=== PATIENT | female | born 1995 | race Caucasian/White ===

== ENCOUNTER → 2024-03-25 | Outpatient (CLI) | payer OTHER ==
--- NOTE | 2024-03-27 01:04 | MR ---
EXAMINATION TYPE: MR knee LT wo con DATE OF EXAM: 03/25/2024 COMPARISON: Outside left knee x-ray March 18, 2024 HISTORY: Left knee pain since 03-06-2024, Injured twisted knee and knee gave out, Some swelling TECHNIQUE: Multiplanar, multisequence images of the knee is performed without IV contrast. FINDINGS: MEDIAL MENISCUS: Anterior and posterior horns are intact without tear. LATERAL MENISCUS: Anterior and posterior horns are intact without tear. CRUCIATE LIGAMENTS: The posterior cruciate ligament is intact and unremarkable. Complete tear of the anterior cruciate ligament is noted. COLLATERAL LIGAMENTS: The lateral collateral ligament complex is intact and unremarkable. Medial alley ateral ligament has some increased signal proximal fibers. Surrounding fluid is seen. EXTENSOR MECHANISM: Visualized quadriceps and patellar tendons are intact. EFFUSION: Moderate to large size suprapatellar joint effusion. POPLITEAL CYST: No popliteal/mosqueda cyst. TRICOMPARTMENT SPACES: Tricompartment joint spaces are maintained. No significant spurring. CARTILAGE: Tricompartmental articular cartilage is preserved. BONE MARROW SIGNAL: Heterogeneous increased T2 signal involving the anterolateral aspect of the dista l lateral femoral condyle. More prominent heterogeneous increased T2 signal involving the posterior a spect of the lateral and medial tibial plateau. OTHER: No additional significant abnormality is appreciated. IMPRESSION: 1. Complete ACL tear. Associated osseous contusion injury posterior lateral aspect distal lateral fem oral condyle and posterior aspect lateral proximal tibia 2. Additional osseous contusion injury posterior aspect proximal medial tibia. 3. Partial tear or sprain injury of the MCL. 4. Moderate to large size suprapatellar joint effusion. [facility], Workstation: [address], 03/27/2024 1:01 AM
== END | disposition home or self-care (01) ==
LOC: RADMRIMAIN 21:45
PROVIDERS: ATTEND Orthopaedic Surgery
DX: S83.512A Sprain of anterior cruciate ligament of left knee, initial encounter (principal)

== ENCOUNTER → 2024-04-10 | Outpatient (CLI) | payer OTHER ==
[2024-04-10 15:03] LABS: Basophils # (A) 0.04 X 10*3/uL (0.00-0.10); Basophils % (A) 0.4 %; Eosinophils % (A) 1.8 %; HCT 44.6 % (37.2-46.3); HGB 14.8 g/dL (12.0-15.0); Lymphocytes # (A) 2.83 X 10*3/uL (0.90-5.00); Lymphocytes % (A) 25.2 %; MCH 30.3 pg (27.0-32.0); MCHC 33.2 g/dL (32.0-37.0); MCV 91.4 FL (80.0-97.0); Mean Platelet Volume 10.8 FL (9.5-12.2); Monocytes # (A) 0.87 X 10*3/uL (0.20-1.00); Monocytes % (A) 7.7 %; NRBC Per 100 WBC 0 X 10*3/uL (0.00-0.01); Neutrophils # (A) 7.28 X 10*3/uL (1.80-7.70); Neutrophils % (A) 64.6 %; Platelet Count 316 X 10*3/uL (140-440); RBC 4.88 X 10*6/uL (4.10-5.20); RDW 11.9 % (11.5-14.5); WBC 11.25 X 10*3/uL (4.50-10.00)
[2024-04-10 15:15] LABS: Anion Gap 12.6 mmol/L (4.00-12.00); Carbon Dioxide 24.4 mmol/L (21.6-31.8); Potassium 4.7 mmol/L (3.5-5.5)
== END | disposition home or self-care (01) ==
LOC: LABWHC1 11:02
PROVIDERS: ATTEND Orthopaedic Surgery
DX: S83.512A Sprain of anterior cruciate ligament of left knee, initial encounter (principal)
CPT/HCPCS: 36415; 80051; 85025

== ENCOUNTER 2024-04-30 05:35 | Day surgery (SDC) | payer OTHER ==
--- NOTE | 2024-04-29 21:27 | HP ---
HISTORY AND PHYSICAL DATE OF SURGERY: 04/30/2024. HISTORY OF PRESENT ILLNESS: Gila Bird is a 29-year-old patient seen with a left knee ACL tear and instability. We discussed options regarding treatment. She elected to proceed with left knee arthroscopy to include allograft ACL reconstruction. Consent regarding procedure was obtained. PAST MEDICAL HISTORY: Noncontributory. PAST SURGICAL HISTORY: Noncontributory. DAILY MEDICATIONS: None. ALLERGIES: None reported. SOCIAL HISTORY: The patient denies tobacco use. PHYSICAL EVALUATION OF THE LEFT KNEE: Range of motion is -2 to 110 degrees. There is a mild to moderate effusion. Tenderness along the medial joint line. +2 to 3 Jaswinder, no endpoint, positive pivot shift. Collateral ligaments are stable. Distal neurovascular exam is intact. IMAGING STUDIES: Radiographs of the left knee failed to reveal any osseous abnormality. MRI of left knee revealed ACL tear and MCL sprain as well as an effusion. IMPRESSION: Internal derangement of left knee with anterior cruciate ligament tear. PLAN: Left knee arthroscopy with allograft ACL reconstruction. MMODL / IJN: [id number] /
[2024-04-30] MEDS ORDERED: LIDOCAINE 1% (10MG/ML) FOR IV START INTRADERMA PRN (06:09)
[2024-04-30] MEDS ORDERED: HYDROmorphone 0.5 MG/0.5 ML SYRINGE IVP PRN (06:09)
[2024-04-30] MEDS ORDERED: fentaNYL (PF) 50 MCG/ML 2 ML AMP IVP PRN (06:09)
[2024-04-30] MEDS: IV FLUID CONTINUATION 1,000 ML IV ONE (06:34)
[2024-04-30] MEDS: LACTATED RINGERS 1,000 ML IV SCH (06:34)
[2024-04-30] MEDS: ONDANSETRON 4 MG/2 ML VIAL IVP ONE (06:40)
[2024-04-30] MEDS: DEXAMETHASONE SOD PHOSPHATE 4 MG/ML 1 ML VIAL IV ONE (06:41)
[2024-04-30] MEDS: MIDAZOLAM 2 MG/2 ML VIAL IV PRN (06:51)
[2024-04-30] MEDS ORDERED: fentaNYL (PF) 50 MCG/ML 2 ML AMP ONE (07:25)
[2024-04-30] MEDS ORDERED: MIDAZOLAM 2 MG/2 ML VIAL ONE (07:25)
[2024-04-30] MEDS ORDERED: PROPOFOL 10 MG/ML 20 ML VIAL IV ONE (07:25)
[2024-04-30] MEDS ORDERED: KETAMINE HCL IN 0.9 % NACL 50 MG/5 ML SYRINGE ONE (07:25)
[2024-04-30] MEDS ORDERED: ROPIVACAINE 5 MG/ML 30 ML VIAL ONE (07:25)
[2024-04-30] MEDS ORDERED: SUCCINYLCHOLINE CHLORIDE 200 MG/10 ML VIAL IV ONE (07:25)
[2024-04-30] MEDS ORDERED: HYDROmorphone (PF) 1 MG/ML ONE (07:25)
[2024-04-30] MEDS ORDERED: LIDOCAINE 1% INJ 10MG/ML (20 ML MDV) ONE (07:25)
[2024-04-30] MEDS ORDERED: ROCURONIUM 10 MG/ML (5 ML VIAL) IV ONE (07:25)
[2024-04-30] MEDS ORDERED: GLYCOPYRROLATE 0.2 MG/ML 2 ML VIAL ONE (07:25)
[2024-04-30] MEDS ORDERED: DEXAMETHASONE SOD PHOSPHATE 4 MG/ML 1 ML VIAL ONE (07:25)
[2024-04-30] MEDS ORDERED: NEOSTIGMINE 1 MG/ML 10 ML VIAL ONE (07:25)
[2024-04-30] MEDS: BUPIVACAINE (PF) 0.25% 30 ML VIAL SQ ONE ×2 (09:18→09:33)
--- NOTE | 2024-04-30 09:41 | P.OP ---
Date of Procedure: 04/30/24 Preoperative Diagnosis: Internal derangement left knee with ACL tear Postoperative Diagnosis: 1. ACL tear left knee 2. Medial meniscal tear left knee 3. Reactive synovitis medial, lateral and suprapatellar compartments left knee 4. 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 Arthroscopic allograft ACL reconstruction left knee 2. Arthroscopic partial medial meniscectomy left knee 3. Arthroscopic partial synovectomy medial, lateral and suprapatellar compartments left knee 4. Arthroscopic chondroplasty medial femoral condyle left knee Implants: 2Arthrex Endobutton's Anesthesia: GETA, local Surgeon: Bolivar Nowak Engraver Flatware #1: Lorne Menjivar Estimated Blood Loss (ml): 10 Pathology: none sent Condition: stable Disposition: PACU Indications for Procedure: 29-year-old patient seen with left knee instability consistent with ACL tear. We discussed options. She elected to proceed with arthroscopy to include allograft ACL reconstruction. Operative Findings: See description of procedure Description of Procedure: Patient was taken to the operative suite. Patient underwent a general anesthetic by the department of anesthesia. Patient was given preoperative antibiotics. The left lower extremity was placed in a well-padded arthroscopic leg sanchez. The left leg was prepped and draped in the normal sterile orthop edic fashion. A lateral parapatellar and suprapatellar incision was made. Trochars were inserted. Arthroscopy was initiated. Suprapatellar pouch revealed diffuse thick reactive synovitis. The patellofemoral joint appeared to articulate congruently. There was no chondromalacia present. The scope was guided into the medial gutter. No loose bodies or plica were identified. The scope was then guided into the medial compartment. A medial parapatellar incision was made. Trocar inserted followed by probe. There was a radial tear posterior horn medial meniscus. There was near grade I chondromalacia along the medial aspect medial femoral condyle with osteochondral flap tear present. Scope and probe were then guided into the intercondylar notch. There was a complete tear of the anterior crucial ligament. At this point we opened up our allograft. Melquiades MUÑOZ began preparing her allograft for implantation I guided the scope back into the medial compartment. I performed a partial medial meniscectomy getting down to stable meniscal tissue. I performed a chondroplasty of the medial femoral condyle getting down to stable osteochondral tissue. I performed a partial synovectomy decompressing the thick reactive synovitis. The residual meniscus was stable. There was good decompression of the synovitis. The residual osteochondral surface was stable. The scope and probe were then guided into lateral compartment. The lateral meniscus was probed and was found to be stable. There was some thick reactive synovitis anteriorly. There was no chondromalacia. I reduced a motorized shaver and performed a partial synovectomy. The shaver was now removed. There was good decompression of the synovitis. I now guided the scope back into the intercondylar notch area. I now debrided out the residual torn ACL. I noted a very tight notch and performed a notchplasty. At this point the graft was prepared for implant. I now introduced our guide for the femoral tunnel. Melquiades MUÑOZ hold the guide in position while I created the femoral tunnel. We now passed a shuttle suture through that. I now introduced my tibial all inside tunnel guide. I held in position and Melquiades MUÑOZ passed the guidewire into the joint. We now created a all inside tibial tunnel. We now passed a show suture through that tunnel. The graft was now brought to the operative field. We shuttled the femoral graft into the tunnel making sure we flip the Endobutton and it was secured. We now passed our tibial side of the graft through the tibial tunnel and noted good positioning of our graft. The scope was now removed from the joint. I took the knee into full extension. I made an incision and dissected down to the proximal tibia. We now placed an Endobutton through our tibial sided sutures and I secured the tibial side the graft with the Arthrex Endobutton. The residual suture limbs were clipped. I did pass a internal brace and drilled a hole through the proximal tibia, passing internal brace suture three 4.75 Arthrex swivel lock anchor. I placed the anchor into the predrilled hole and then I introduced the anchor with good fixation noted. The residual suture limbs were clipped. We now guided the scope back into the joint. I guided the scope into intercondylar notch and noted excellent placement of the ACL graft. There was excellent intraoperative stability. There was full range of motion no impingement. The femoral side sutures were now removed. The scope was in guided back into the suprapatellar compartment. I reduced a motorized shaver into the supra compartment. I performed a partial synovectomy. The shaver was removed. There was good decompression of the synovitis. I took 1 more look around the entire knee, no residual debris. Instruments were now removed from the joint. The joint was infiltrated with .25% Marcaine. The medial incision along the proximal tibia was repaired subcutaneous with 2-0 Vicryl and skin with nylon suture. All portal sites were repaired with nylon suture. We applied sterile dressings. A NUNO hose was applied the extremity. We placed the extremity in a soft knee immobilizer. No tourniquet was utilized. The patient was awakened, transferred to a bed and taken to recovery stable satisfactory condition.
[2024-04-30 09:55] VITALS: TEMP 98.7
[2024-04-30 10:53] VITALS: RESP 16
[2024-04-30] MEDS: HYDROcodone/APAP 7.5-325MG 1 EACH TAB PO ONE (11:12)
[2024-04-30 11:25] VITALS: BP 109/67; PULSE 72
--- NOTE | 2024-05-01 11:06 | P.ANPRN ---
Procedure Note - Anesthesia - Nerve Block Performed Left Adductor Canal Single Time Out Performed: Yes Date of Procedure: 04/30/24 Procedure Start Time: 06:53 Procedure Stop Time: 06:56 Location of Patient: PreOp Indication: Acute Post-Operative Pain, Requested by Surgeon Sedation Type: Sedate with meaningful contact maintained Preparation: Sterile Prep Position: Supine Needle Types: Pajunk Needle Gauge: 21 Ultrasound used to visualize needle placement: Yes Ultrasound used to observe medication spread: Yes Blood Aspirated: No Pain Paresthesia on Injection Noted: No Resistance on Injection: Normal Image Stored and Saved: Yes Events: Uneventful and Well Tolerated (Ropivacaine 0.5% 20 cc plus dexamethasone 4 mg)
== END 2024-04-30 11:53 | disposition home or self-care (01) ==
LOC: OR 05:35
PROVIDERS: ATTEND Orthopaedic Surgery
DX: S83.512A Sprain of anterior cruciate ligament of left knee, initial encounter (principal); S83.242A Other tear of medial meniscus, current injury, left knee, initial encounter; M65.862 Other synovitis and tenosynovitis, left lower leg; M94.262 Chondromalacia, left knee; G89.18 Other acute postprocedural pain; X58.XXXA Exposure to other specified factors, initial encounter
CPT/HCPCS: 64447; 29888; 29881; 29876; C1713 ×5; J2250; J0330; J1100; J2710; J0690; J2405; J2003; J3010; J1171; J2795; J2704; J0665; J1596